=== PATIENT | male | born 1970 | race Two or more races ===

== ENCOUNTER 2016-10-12 00:11 | Emergency (ER) | payer SELFPAY ==
[~2016-10-12] VITALS: Ht 167.6 cm; Wt 81.6 kg
[2016-10-12 00:44] LABS: Basophils # (auto) 0.1 uL; Basophils % (auto) 0.6 % (0.0-2.0); Eosinophils # (auto) 0.1 uL; Eosinophils % (auto) 0.7 % (0.0-7.0); Hematocrit 34.6 % (41.0-53.0); Hemoglobin 11.9 g/dL (13.5-17.5); Lymphocytes # (auto) 3.1 uL; Lymphocytes % (auto) 26.6 % (10.0-50.0); Mean Corpuscular Hemoglobin 29.6 pg (28.0-32.0); Mean Corpuscular Hgb Conc. 34.4 g/dL (32.0-36.0); Mean Corpuscular Volume 86.2 fL (80.0-100.0); Monocytes # (auto) 0.7 uL; Monocytes % (auto) 6.1 % (0.0-12.0); Neutrophils # (auto) 7.8 uL; Platelet Count (auto) 281 10^3/uL (140-450); Red Cell Distribution Width 11.6 % (11.6-16.0); White Blood Cell 11.8 10^3/uL (4.4-10.8)
[2016-10-12 01:02] LABS: Albumin 2.4 g/dL (3.4-5.0); Anion Gap 12 (5-15); Blood Urea Nitrogen 32 mg/dL (7-18); Calcium 8.3 mg/dL (8.5-10.1); Carbon Dioxide 25 mmol/L (21-32); Chloride 94 mmol/L (98-107); Glucose 366 mg/dL (74-106); Potassium 4.5 mmol/L (3.5-5.1); Sodium 131 mmol/L (136-145)
[2016-10-12 01:05] LABS: Aspartate Aminotransferase 11 U/L (15-37); BUN/Creatinine Ratio 31.7; GFR African American 103 mL/min; GFR Non-African American 85 mL/min
[2016-10-12 01:09] LABS: Alkaline Phosphatase 81 U/L (45-117); Bilirubin, Total 0.4 mg/dL (0.2-1.0); Total Protein 6.6 g/dL (6.4-8.2)
[2016-10-12] MEDS ORDERED: cefTRIAXone W LIDOCAINE 1 GM IM IM ONE (08:30)
[2016-10-12] MEDS ORDERED: LORazepam 0.5 MG TAB PO ONE (08:45)
[2016-10-12] MEDS ORDERED: cefTRIAXone 1GM/50ML D5W 50 ML IV ONE (09:00)
[2016-10-12 10:15] LABS: Urine Bilirubin Negative (Negative); Urine Blood TRACE /uL (Negative); Urine Color Yellow (Yellow); Urine Glucose 4+ mg/dL (Normal); Urine Ketone Negative (Negative); Urine Mucus FEW (None Seen); Urine Nitrite Negative (Negative); Urine RBC 1 /hpf (0 - 3); Urine Squamous Epithelial Cell FEW /hpf (<5); Urine Urobilinogen Normal (Negative)
[2016-10-12 10:39] VITALS: BP 128/88
== END 2016-10-12 10:45 | disposition home or self-care (01) ==
LOC: ER 00:11 → EDBD 00:11 → ER 10:44
DX: R07.89 Other chest pain (principal); F41.9 Anxiety disorder, unspecified; Z48.01 Encounter for change or removal of surgical wound dressing; R00.2 Palpitations; L97.529 Non-pressure chronic ulcer of other part of left foot with unspecified severity; E11.621 Type 2 diabetes mellitus with foot ulcer; I10 Essential (primary) hypertension; Z87.891 Personal history of nicotine dependence
CPT/HCPCS: 36415; 71020; 80053; 80307; 81001; 84484; 85025; 93005; 96365; 96372; 99285; J0696